=== PATIENT | male | born 1955 | race Caucasian/White ===

== ENCOUNTER 2019-12-29 09:51 | Outpatient (CLI) | payer OTHER, SELFPAY ==
--- NOTE | 2019-12-29 10:15 | USCV_ITS ---
Jay Pham Age: 64 Gender: M : 1955 Exam Date: 12/29/2019 10:13 Ordering Phys: Ledy Martinez Technologist: Ede Gregg Exam Location: [facility] [place] Indication: CHF BP: 137 / 75 HR: 57 Rhythm: Sinus Technical Quality: Good MEASUREMENTS (Male / Female) Normal Values 2D ECHO LV Diastolic Diameter PLAX 6.7 cm 4.2 - 5.9 / 3.9 - 5.3 cm LV Systolic Diameter PLAX 4.7 cm IVS Diastolic Thickness 1.0 cm 0.6 - 1.0 / 0.6 - 0.9 cm IVS Systolic Thickness 1.2 cm LVPW Diastolic Thickness 0.8 cm 0.6 - 1.0 / 0.6 - 0.9 cm LVPW Systolic Thickness 1.5 cm LVOT Diameter 2.1 cm LV Ejection Fraction 2D Teich 55.2 % LV Ejection Fraction MOD 2C 49.3 % LV Ejection Fraction 2C AL 48.4 % LA Diameter 3.6 cm LA Width 4.7 cm LA Height 5.4 cm RA Width 4.2 cm RA Height 5.2 cm M-MODE LV Diastolic Diameter MM 6.4 cm 4.2 - 5.9 / 3.9 - 5.3 cm LV Systolic Diameter MM 4.6 cm LV Ejection Fraction MM Teich 53.9 % IVS Diastolic Thickness MM 1.0 cm 0.6 - 1.0 / 0.6 - 0.9 cm IVS Systolic Thickness MM 1.6 cm LVPW Diastolic Thickness MM 1.1 cm 0.6 - 1.0 / 0.6 - 0.9 cm LVPW Systolic Thickness MM 1.6 cm RV Diastolic Diameter MM 1.1 cm Aortic Annulus Diameter 4.0 cm LA Ao Ratio MM 0.9 MV E Point Septal Separation 1.2 cm DOPPLER AV Peak Velocity 119.0 cm/s LVOT Peak Velocity 91.0 cm/s AV Area Cont Eq vti 2.1 cm squared AV Area Cont Eq pk 2.6 cm squared MV Area PHT 5.0 cm squared Mitral E to A Ratio 1.7 MV E' Velocity 10.0 cm/s Mitral E to MV E' Ratio 10.1 Mitral E to LV E' Lateral Ratio 8.4 Mitral E to LV E' Septal Ratio 12.9 TR Peak Velocity 209.0 cm/s TR Peak Gradient 17.5 mmHg TV Peak E Velocity 84.0 cm/s Right Atrial Pressure 3.0 mmHg Pulmonary Artery Systolic Pressu 20.5 mmHg PV Peak Velocity 90.0 cm/s FINDINGS Left Ventricle Mild diffuse hypokinesia left ventricle with ejection fraction of 49%. Right Ventricle The right ventricle is normal in size and function. Right Atrium The right atrium is normal in size. Left Atrium Mildly increased left atrial size. Mitral Valve Thickened mitral valve with mild mitral valve regurgitation. Aortic Valve Thickened aortic valve. Tricuspid Valve Mild tricuspid valve regurgitation. Pulmonic Valve Mild pulmonary valve regurgitation. Pericardium Normal pericardium without effusion. Aorta Plaque seen in the ascending aorta. CONCLUSIONS Mild diffuse hypokinesia left ventricle with ejection fraction of 49%. Mildly increased left atrial size. Thickened mitral valve with mild mitral valve regurgitation. Mild tricuspid valve regurgitation. Mild pulmonary valve regurgitation. Estimated pulmonary artery peak systolic pressure of 20 mmHg There is no pericardial effusion. There are no intracardiac masses. No previous study is available for comparison. Dr Lindsey Keys MD FACC (Electronically Signed) Final Date: 30 December 2019 19:50 S
== END 2019-12-29 09:52 | disposition home or self-care (01) ==
LOC: US 09:58
PROVIDERS: Family Provider Emergency Medicine Emergency Medical Services; PCP Emergency Medicine Emergency Medical Services; Visit Provider Nurse Practitioner Family
DX: I50.20 Unspecified systolic (congestive) heart failure (principal); I08.1 Rheumatic disorders of both mitral and tricuspid valves
CPT/HCPCS: 93306

== ENCOUNTER 2020-08-27 09:22 | Outpatient (CLI) | payer OTHER, SELFPAY ==
[2020-08-27 09:51] LABS: D Dimer 0.38 ug/mIFEU (0-0.59)
[2020-08-27 09:56] LABS: Alanine Aminotransferase 47 U/L (0-41); Albumin Level 3.5 g/dL (3.5-5.2); Alkaline Phosphatase 120 IU/L (40-130); Anion Gap 14.8 (5-19); Aspartate Amino Transferase 27 U/L (0-40); Blood Urea Nitrogen 7 mg/dL (8-23); C Reactive Protein 46.2 mg/L (0.0-4.9); Calcium 8.3 mg/dL (8.5-10.5); Carbon Dioxide 23 mmol/L (22-29); Chloride 97 mmol/L (98-107); Globulin 2.7 g/dL (1.3-4.6); Glomerular Filtration Rate 135.2 mL/min (90-130); Glucose 119 mg/dL (65-115); Lactate Dehydrogenase 203 U/L (135-225); Osmolality Calculated 271 mOsm/kg (285-295); Potassium 3.8 mmol/L (3.5-5.1); Sodium 131 mmol/L (136-145); Total Bilirubin 0.9 mg/dL (0.15-1.2); Total Protein 6.2 g/dL (6.6-8.7)
[2020-08-27 10:08] LABS: Hepatitis A Antibody IgM Non-Reactive (Nonreactive); Hepatitis B Surface Antigen Non-Reactive (Nonreactive); Hepatitis C Virus Antibody Non-Reactive (Nonreactive)
== END 2020-08-27 09:23 | disposition home or self-care (01) ==
LOC: LAB 09:23
PROVIDERS: Family Provider Emergency Medicine Emergency Medical Services; PCP Emergency Medicine Emergency Medical Services; Visit Provider Emergency Medicine Emergency Medical Services
DX: B15.9 Hepatitis A without hepatic coma (principal); U07.1 COVID-19
CPT/HCPCS: 80053; 83615; 85378; 86140; 86706; 86709; 86803; 87340

== ENCOUNTER 2020-10-14 08:43 | Outpatient (CLI) | payer OTHER, MEDICARE, SELFPAY ==
--- NOTE | 2020-10-14 08:52 | USCV_ITS ---
Jay Pham Age: 65 Gender: M : 1955 Exam Date: 10/14/2020 08:43 Ordering Phys: Kyle Bill DO Technologist: Chelsie Bliss Exam Location: [facility] [place] Indication: screening HISTORY: Diameter (cm) AP x Transverse x Length Velocity (cm/s) Waveform Prox Aorta: 2.15 x 2.33 x 55.40 Mid Aorta: 1.97 x 2.51 x 52.90 Distal Aorta: 1.98 x 2.51 x 68.60 Right Iliac Prox: 0.99 x 2.02 x 88.40 Left Iliac Prox: 1.05 x 0.99 x 140.00 Stent Prox Landing x x Aneurysmal Sac Max x x Lt Lat Sac Dim Rt Lat Sac Dim Stent Dist Landing x x Right Iliac Stent x x Left Iliac Stent x x Right Renal Art Left Renal Art FINDINGS: CONCLUSIONS No evidence of abdominal aortic or bilateral iliac aneurysm. London Flynn MD (Electronically Signed) Final Date: 14 October 2020 09:24 S
== END 2020-10-14 08:44 | disposition home or self-care (01) ==
LOC: RAD 08:44
PROVIDERS: PCP Emergency Medicine Emergency Medical Services; Visit Provider Emergency Medicine Emergency Medical Services
DX: I71.4 Abdominal aortic aneurysm, without rupture (principal)
CPT/HCPCS: 76706

== ENCOUNTER → 2020-11-13 08:39 | Outpatient (BNVA) | payer OTHER, SELFPAY | PROVIDERS: PCP Emergency Medicine Emergency Medical Services; Referring Provider Emergency Medicine Emergency Medical Services; Visit Provider Urology | DX: N52.9 Male erectile dysfunction, unspecified (principal) | CPT/HCPCS: 81003 ==

== ENCOUNTER 2021-01-01 06:35 | Outpatient (CLI) | payer OTHER, SELFPAY ==
--- NOTE | 2021-01-01 07:15 | USCV_ITS ---
Jay Pham Age: 65 Gender: M : 1955 Exam Date: 01/01/2021 07:58 Ordering Phys: Kin Plascencia MD ([email or web address]) Technologist: My [place] Exam Location: [facility] [place] Indication: SOB CHF BP: / HR: 58 Rhythm: Sinus Technical Quality: Adequate MEASUREMENTS (Male / Female) Normal Values 2D ECHO LV Diastolic Diameter PLAX 4.9 cm 4.2 - 5.9 / 3.9 - 5.3 cm LV Systolic Diameter PLAX 3.4 cm LV Chamber Size 5.0 cm IVS Diastolic Thickness 1.7 cm 0.6 - 1.0 / 0.6 - 0.9 cm IVS Systolic Thickness 1.8 cm LVPW Diastolic Thickness 1.4 cm 0.6 - 1.0 / 0.6 - 0.9 cm LVPW Systolic Thickness 2.0 cm RV Chamber Size 2.5 cm LVOT Diameter 2.0 cm LV Ejection Fraction 2D Teich 58.7 % LV Ejection Fraction MOD 2C 44.0 % LV Ejection Fraction 2C AL 46.9 % LA Diameter 3.6 cm LA Width 3.2 cm LA Height 4.7 cm RA Width 3.6 cm RA Height 3.9 cm Aorta at Sinotubular Diameter 3.2 cm M-MODE LV Diastolic Diameter MM 5.8 cm 4.2 - 5.9 / 3.9 - 5.3 cm LV Systolic Diameter MM 4.3 cm LV Ejection Fraction MM Teich 49.5 % IVS Diastolic Thickness MM 1.1 cm 0.6 - 1.0 / 0.6 - 0.9 cm IVS Systolic Thickness MM 1.9 cm LVPW Diastolic Thickness MM 1.4 cm 0.6 - 1.0 / 0.6 - 0.9 cm LVPW Systolic Thickness MM 1.8 cm RV Diastolic Diameter MM 1.4 cm Aortic Annulus Diameter 4.4 cm LA Ao Ratio MM 0.8 MV E Point Septal Separation 0.9 cm DOPPLER AV Peak Velocity 111.0 cm/s LVOT Peak Velocity 76.0 cm/s AV Area Cont Eq vti 2.2 cm squared AV Area Cont Eq pk 2.2 cm squared MV Area PHT 2.3 cm squared Mitral E to A Ratio 1.0 MV E' Velocity 40.0 cm/s Mitral E to MV E' Ratio 12.3 Mitral E to LV E' Lateral Ratio 12.7 Mitral E to LV E' Septal Ratio 12.1 TR Peak Velocity 191.9 cm/s TR Peak Gradient 14.7 mmHg TR Mean Velocity 143.8 cm/s TR Mean Gradient 9.5 mmHg TR Velocity Time Integral 51.7 cm TV Peak E Velocity 90.0 cm/s Right Atrial Pressure 3.0 mmHg Pulmonary Artery Systolic Pressu 17.7 mmHg PV Peak Velocity 52.0 cm/s FINDINGS Left Ventricle Normal left ventricular cavity size. Moderately decreased left ventricular systolic function. Global left ventricular hypokinesis. Left ventricular ejection fraction is estimated at 45 %. Grade I/IV diastolic dysfunction (abnormal relaxation filling pattern), normal to mildly elevated filling pressures. Right Ventricle The right ventricle is normal in size and function. Right Atrium The right atrium is normal in size. Left Atrium The left atrium is normal in size. Mitral Valve Moderately thickened mitral valve. No mitral valve stenosis. Trace mitral valve regurgitation. Aortic Valve Moderate aortic valve calcification. No aortic valve stenosis. Mild aortic valve regurgitation. Tricuspid Valve Structurally normal tricuspid valve without significant stenosis or regurgitation. Pulmonary artery systolic pressure is normal. Pulmonic Valve Structurally normal pulmonic valve without significant stenosis. There is no pulmonic regurgitation. Pericardium Normal pericardium without effusion. Aorta Normal ascending aorta dimension. CONCLUSIONS 1-Normal left ventricular cavity size. Moderately decreased left ventricular systolic function. Global left ventricular hypokinesis. Left ventricular ejection fraction is estimated at 45 %. Grade I/IV diastolic dysfunction (abnormal relaxation filling pattern), normal to mildly elevated filling pressures. 2-Moderate aortic valve calcification. No aortic valve stenosis. Mild aortic valve regurgitation. 3-Moderately thickened mitral valve. No mitral valve stenosis. Trace mitral valve regurgitation. 4-There is no pericardial effusion. 5-Pulmonary artery systolic pressure is within normal limits. 6-Right atrial pressure is around 5 mm of mercury. 7-No significant change since the prior echocardiogram study of 12/30/2019. Kin Plascencia MD (Electronically Signed) Final Date: 02 January 2021 17:24 S
== END 2021-01-01 06:36 | disposition home or self-care (01) ==
LOC: US 06:35
PROVIDERS: PCP Emergency Medicine Emergency Medical Services; Visit Provider Internal Medicine Cardiovascular Disease
DX: I50.23 Acute on chronic systolic (congestive) heart failure (principal); R06.02 Shortness of breath; I08.0 Rheumatic disorders of both mitral and aortic valves
CPT/HCPCS: 93306

== ENCOUNTER → 2021-01-02 16:45 | Outpatient (BNVA) | payer OTHER, SELFPAY | PROVIDERS: PCP Emergency Medicine Emergency Medical Services; Visit Provider Internal Medicine Cardiovascular Disease | DX: I25.10 Atherosclerotic heart disease of native coronary artery without angina pectoris (principal); Z20.828 Contact with and (suspected) exposure to other viral communicable diseases; I50.23 Acute on chronic systolic (congestive) heart failure | CPT/HCPCS: 87635 ==

== ENCOUNTER → 2021-01-03 08:32 | Outpatient (BNVA) | payer OTHER, SELFPAY | PROVIDERS: PCP Emergency Medicine Emergency Medical Services; Visit Provider Internal Medicine Cardiovascular Disease | DX: I50.23 Acute on chronic systolic (congestive) heart failure (principal); Z95.0 Presence of cardiac pacemaker; I25.10 Atherosclerotic heart disease of native coronary artery without angina pectoris | CPT/HCPCS: 80048; 85025 ==

== ENCOUNTER 2021-01-06 11:03 | Inpatient (IN) | payer OTHER, MEDICARE, SELFPAY ==
[2021-01-06] VITALS (54 sets, daily range): BP systolic 84–169; BP diastolic 55–120; PULSE 56–121; RESP 12–21; TEMP 36.4–36.7; O2SAT 92–100; BMI 28.5
--- NOTE | 2021-01-06 | XACV_ITS ---
Ht: 173 cm Wt: 85 kg BSA: 2.04 m2 Gender: Male : 1955 Any Known Allergies: No known allergies Exam Priority: Routine Diagnostic Findings * LM has 0% stenosis. * CX has 0% stenosis. * RCA has 0% stenosis. * Proximal Left Anterior Descending Coronary Artery: Severe 100% stenosis, SRUTHI: 0 flow. * Coronary angiography shows right dominance. PCI Indication: STEMI - Immediate PCI for STEMI Interventional Findings * Proximal Left Anterior Descending Coronary Artery: 100% stenosis treated with Drug Eluting Stent. 0% residual stenosis, SRUTHI: 3 flow. * Successful PCI to ostial LAD. Lesion was prepared with AB TREK balloon, followed by deployment of SALLY INTEGRITY 2.75 x 12 mm stent posted at high LORETTA . Stent was then post-dilated with serial dilatation of NC 3.0 x 8 mm at high LOR[place] in its entire length to ensure proper approximation. Excellent angiographic result with SRUTHI-3 flow was achieved. . Conclusions 1. There is severe coronary artery disease with one vessel disease. 2. Proximal Left Anterior Descending Coronary Artery was treated with Drug Eluting Stent. 3. Indication for General Agent: ST elevation MS. 65-year-old male for unstable angina like picture underwent left heart cath noted to have mid LAD moderate to severe in-stent restenosis. FFR was performed it turns out to be below 0.77 and significant. Balloon angioplasty using a noncompliant balloon was performed. Good angiographic result was achieved. Patient was transferred back to the room in a stable condition however he started noticing chest pain immediately EKG was performed which showed ST elevation in anterolateral leads. Patient was brought back to the General Agent immediately access was taken and angiogram was performed. Patient was noted to have ostial LAD dissection most likely secondary to possible guide related. It was immediately treated with balloon angioplasty followed by drug-coated stent placement which was overlapped with previously placed mid LAD stent. Proximal LAD stent was then postdilated with noncompliant balloon. Excellent angiographic result with SRUTHI-3 flow was achieved.. Recommendations * Continue current medical management and risk factor modification. Diagnostic RX Recommendation: PCI w/o planned CABG I, the attending physician, have reviewed and verified all procedure medications. Yes, all medications given per verbal order History/Risk Factors Hypertension: Yes Dyslipidemia: Yes Peripheral Arterial Disease (PAD): No Myocardial Infarction (MS): Yes Obesity: No Renal Disease: No Tobacco Use: Former Prior Interventions PCI: Yes CABG: No Valve Surgery: No Report Signatures Finalized by Kin Plascencia MD on 01/13/2021 07:30 PM
--- NOTE | 2021-01-06 07:21 | XACV_ITS ---
Exam Room: [facility] Ht: 173 cm Wt: 85 kg BSA: 2.04 m2 Gender: Male : 1955 Any Known Allergies: No known allergies Exam Priority: Routine Procedure(s): Procedure Description: Diagnostic procedure Procedure Description: PCI procedure Procedure Description: PTCA Procedure Description: Coronary Angiography Diagnostic Cath Status: Elective Diagnostic Findings * LM has 0% stenosis. * CX has 0% stenosis. * Mid Left Anterior Descending Coronary Artery: Moderate 70% stenosis, SRUTHI: 3 flow, FFR performed: ratio is 0.77. * pRCA: Mild 40% stenosis, SRUTHI: 3 flow. * Coronary angiography shows right dominance. PCI Status: Urgent PCI Indication: New Onset Angina <= 2 months Interventional Findings * Successful balloon angioplasty to mid LAD INSTENT RESTENOSIS. Lesion was treated with 2.75 x 12 mm MDT EUPHORA balloon, 70% lesion was improved to 20%, excellent angiographic result with SRUTHI-3 flow was achieved.. * Mid Left Anterior Descending Coronary Artery: 70% stenosis treated with MDT NC EUPHORA RX [id number] BALLOON and AB MINI TREK 2.00X20 RX BALLOON. 20% residual stenosis, SRUTHI: 3 flow. Successful intervention. Conclusions 1. Indication for cholangiogram: Worsening of angina despite of optimization of medicine1 Left main is normal2-LAD has luminal irregularity with mid 70 % in-stent restenosis3-LCx is nondominant vessel without significant stenosis4-RCA is dominant vessel with proximal 40% stenosisFFR: After equalizing the distal and proximal pressure of FFR wire proximal to the lesion, mid LAD lesion was crossed with FFR wire. IV adenosine at rate of 140 mcg/min was started. Patient did not compliant of any symptoms, at then end of two minutes FFR was recorded as 0.77, which is not significant . 2. There is moderate coronary artery disease with two vessel disease. 3. Mid Left Anterior Descending Coronary Artery was successfully treated with two Balloon. Recommendations * 1-Return to inpatient for close monitoring and routine cath care 2-Risk factor modification for secondary prevention 3-Statin and aspirin 81 mg life--long, if tolerated 4-Patient was pre-loaded with 600 mg of Plavix, continue Plavix 75mg p.o. daily for at least one year. We will assess at the end of one year again to continue if further or not 5-Continue optimal medical management 6-Follow up with Dr. Plascencia in four weeks and your primary care in 10 days. Diagnostic RX Recommendation: PCI w/o planned CABG Pressures Phase:Rest AO : 143 / 83 ( 108 ) @ 3:04:00 AM 181 / 32 ( 74 ) @ 3:06:00 AM 128 / 73 ( 96 ) @ 3:06:00 AM 157 / 75 ( 107 ) @ 3:10:00 AM 144 / 70 ( 100 ) @ 3:12:00 AM 136 / 66 ( 93 ) @ 3:30:00 AM 169 / 62 ( 101 ) @ 4:25:00 AM 156 / 112 ( 125 ) @ 4:30:00 AM 50 / -37 ( -3 ) @ 4:45:00 AM 177 / 112 ( 142 ) @ 4:45:00 AM Clinical Evaluation EBL: 5mL-10mL Procedural Details Procedure Consent Obtained. Current Diagnosis : Chest Pain. Pre-Procedure Time Out. Identified patient by full name and date of as verbalized by the patient/guarantor. Does the consent match the physician's order: Yes. Accurate & Complete Informed Consent: Yes. Inpatient/Outpatient History & Physical on Chart: Yes. If H&P is completed, is and addenduem needed: No; If yes, is the addendum complete: N/A. Visualize and Verify Site with Patient/Guarantor: N/A. Relevant Radiology Images available: Yes. Pre-op teaching completed and patient verbalized understanding. The risks, benefits, and alternatives of sedation and/or procedure were discussed by physician. The patient agrees to continue. Procedure started. [facility] Clinical Fraility Score: 3: Managing Well. Senior Database Programmer Indications: Worsening Angina. Chest Pain Symptom Assessment: Typical Angina Symptoms. Correct patient, site and procedure confirmed by cath team. Current diagnosis: Chest Pain. PERRLA. Strong, equal hand form worker bilaterally. Lungs clear x 5 lobes. IV Site on Arrival: 20 gauge in the left hand. IV Fluids: 0.9% NaCl at KVO. 0 mL infused prior to labor relations specialist. Pre Procedural Pulses: bilateral dorsalis pedis was 3+. Pre Procedural Pulses: bilateral posterior tibial was 2+. Pre Procedural Pulses: bilateral radial was 3+. Oxygen started at 2liters/min via nasal canula. bilateral groins was prepped with chloroprep then draped in the usual sterile fashion. Physician notified. Baseline sample Acquired. HR: 65 BPM. Physician arrived. Immediate Pre-Procedure Time Out. Correct Patient: Yes; Correct Procedure: Yes; Correct Site: Yes; Correct Patient Position: Yes; Correct Supplies: Yes; Dried Flammable Prep: Yes; Blood Products Available: N/A;. Lidocaine 1% infiltrated to the right groin. Arterial access obtained with micropuncture set. Lidocaine 1% infiltrated to the right groin. A 5 nicaraguan JL4 catheter in over wire. Catheter removed over the standard wire. A 5 nicaraguan AL1 catheter in over wire. Multiple views taken of right coronary artery. Catheter removed over the exchange wire. 6 nicaraguan XB 3.5 guide catheter was inserted over the wire. Multiple views taken of left coronary artery. FFR guidewire was advanced through the guide catheter to lesion in the mid LAD. An FFR value of 0.77 was obtained for a lesion located at Mid LAD. Inflation number : 1 A MDT NC EUPHORA RX 2.37P44RK BALLOON was prepped and advanced across the Mid LAD , then inflated to 12 LORETTA for 0:28 seconds. Inflation number: 2 The MDT NC EUPHORA RX 2.86R55AB BALLOON was reinflated across the Mid LAD, to 16 LORETTA for 0:24 seconds. Inflation number: 3 The MDT NC EUPHORA RX 2.36K02QE BALLOON was reinflated across the Mid LAD, to 18 LORETTA for 0:40 seconds. Inflation number: 4 The MDT NC EUPHORA RX 2.26Y64VA BALLOON was reinflated across the Mid LAD, to 18 LORETTA for 0:30 seconds. Results checked. Balloon and wire out. Guide catheter out. A Right femoral angiogram was performed to determine safe placement of closure device. Perclose Lot# [id number] placed without complications. No signs or symptoms of hematoma noted. Sterile dressing applied per usual sterile fashion. Post Procedure: Pulses reassessed and unchanged. PERRLA. Strong, equal hand form worker bilaterally. No VTE prophylaxis required. Medication's Wasted: Lidocaine 1% = 10 mL. Medication's Wasted: Heparin = 2000 units. Medication's Wasted: Other = Adenosine 52.6 mg. Total IV fluids: 200 mL. Contrast type used: Omnipaque 300 mgI/mL, 500 mL bottle. Post-op diagnosis: CAD. Complications: None. Estimated blood loss: 5mL-10mL. Procedure completed. Vital chart was stopped. A Perclose ([email or web address]) was successful obtaining hemostatsis at the Right Femoral artery insertion site. Patient transferred by bed to 1st floor. Pt arrived from [facility] with STEMI. Procedure started. O2 started at 5 lpm. Jillian Martinez RT(R) was relieved by Sandi Gibbs RRT as monitoring person. Physician scrubbed in. Arterial access obtained with micropuncture set. Anesthesiologist present to manage sedation and airway. ACT drawn. Results 185 seconds. Therapeutic limits - pre-heparin administration 90-150 seconds and monitoring heparin during a vascular procedure >250 seconds. Inventory is CRD 6 FR XB 3.5 GUIDE. 6 nicaraguan XB 3.5 guide catheter was inserted over the wire. AP pads applied to patient. Anesthesia placed patient on NRB. Runthrough guidewire was advanced through the guide catheter to lesion in the prox LAD. Inflation number : 5 A AB MINI TREK 2.00X20 RX BALLOON was prepped and advanced across the Mid LAD , then inflated to 18 LORETTA for 0:07 seconds. Inflation number: 6 The AB MINI TREK 2.00X20 RX BALLOON was reinflated across the Mid LAD, to 20 LORETTA for 0:12 seconds. Anesthesia preparing to intubate patient. Results checked. Anesthesia intubating patient at this time. Pt was intibated by anesthesiawith a 7.5Fr endotrachial tube. Breath sounds equal bilaterally. Tube was taped into position at 24cm. Inflation number: 7 The AB MINI TREK 2.00X20 RX BALLOON was reinflated across the Mid LAD, to 24 LORETTA for 0:13 seconds. Balloon out. Inflation number : 1 A AB TREK 2.50X8 RX BALLOON was prepped and advanced across the Prox LAD , then inflated to 16 LORETTA for 0:09 seconds. Inflation number: 2 The AB TREK 2.50X8 RX BALLOON was reinflated across the Prox LAD, to 18 LORETTA for 0:06 seconds. Balloon out. 100 mcg fentanyl given by anesthesia. Results checked. Inflation Number : 3 A MDT R SALLY 2.75X15 MARLENE -Lot Number# [id number] exp date 09/22/2022 was prepped and advanced across the Prox LAD. The stent was deployed at 20 LORETTA for 0:20 seconds. Stent balloon and wire out. Inflation number : 4 A MDT NC EUPHORA RX 3.11P46SL BALLOON was prepped and advanced across the Prox LAD , then inflated to 20 LORETTA for 0:13 seconds. A 20 gauge IV was started in the right wrist using aseptic technique. Inflation number: 5 The MDT NC EUPHORA RX 3.13L27MH BALLOON was reinflated across the Prox LAD, to 22 LORETTA for 0:13 seconds. Inflation number: 6 The MDT NC EUPHORA RX 3.33H29ZW BALLOON was reinflated across the Prox LAD, to 22 LORETTA for 0:06 seconds. Checking results. Balloon and wire out. Guide catheter out. Physician scrubbed out. A Suture was successful obtaining hemostatsis at the Right Femoral artery insertion site. Sheath(s) sutured into position with 2-0 silk and sterile 4x4's and Op-site applied over the site. No oozing or signs and symptoms of hematoma noted. Arterial sheath flushed and connected to tranducer and pressure bag with heparinized saline. Post Procedure: Pulses reassessed and unchanged. PERRLA. Strong, equal hand form worker bilaterally. No VTE prophylaxis required. PCI Indication: STEMI. Complications: none. Estimated blood loss: 5mL-10mL. Procedure completed. Patient transferred by bed to ICU. Access Site Site: Right Femoral artery Sheath Size: 6 Fr Hemostasis Method: Perclose ([email or web address]) Hemostasis Success: Successful Site: Right Femoral artery Sheath Size: 6 Fr Hemostasis Method: Suture Hemostasis Success: Successful Procedure Medications Start: 8:47 AM Stop: 8:47 AM Medication: Versed Amount: 1 mg Route: I.V. Start: 8:47 AM Stop: 8:47 AM Medication: Fentanyl Amount: 50 mcg Route: I.V. Start: 8:52 AM Stop: 8:52 AM Medication: Versed Amount: 1 mg Route: I.V. Start: 8:54 AM Stop: 8:54 AM Medication: Fentanyl Amount: 50 mcg Route: I.V. Start: 9:09 AM Stop: 9:09 AM Medication: Heparin Amount: 5000 units Route: I.V. Start: 9:27 AM Stop: 9:27 AM Medication: Heparin Amount: 4000 units Route: I.V. Start: 9:35 AM Stop: 9:35 AM Medication: Versed Amount: 2 mg Route: I.V. Start: 9:53 AM Stop: 9:53 AM Medication: Fentanyl Amount: 50 mcg Route: I.V. Start: 9:53 AM Stop: 9:53 AM Medication: Fentanyl Amount: 50 mcg Route: I.V. Start: 9:54 AM Stop: 9:54 AM Medication: Versed Amount: 2 mg Route: I.V. Start: 10:17 AM Stop: 10:17 AM Medication: Zofran (ondansetron) Amount: 4 mg Route: I.V. Start: 10:18 AM Stop: 10:18 AM Medication: Morphine Amount: 4 mg Route: I.V. Start: 10: AM Stop: 10:21 AM Medication: Versed Amount: 2 mg Route: I.V. Start: 10:30 AM Stop: 10:30 AM Medication: Heparin Amount: 5000 units Route: I.V. Start: 10:33 AM Stop: 10:33 AM Medication: Aggrastat 12.5 mg/250 mL Amount: 43 ml Route: I.V. bolus Start: 10:36 AM Stop: 10:36 AM Medication: Aggrastat 12.5 mg/250 mL Amount: 15.5 ml/hr Route: I.VRebecca luevano I, the attending physician, have reviewed and verified all procedure medications. Yes, all medications given per verbal order History/Risk Factors Hypertension: Yes Dyslipidemia: Yes Peripheral Arterial Disease (PAD): No Myocardial Infarction (SC): Yes Obesity: No Renal Disease: No Tobacco Use: Former Prior Interventions PCI: Yes CABG: No Valve Surgery: No Report Signatures Finalized by Kin Plascencia MD on 01/13/2021 07:18 PM
[2021-01-06] MEDS: diphenhydrAMINE 50 mg Capsule PO (08:21)
--- NOTE | 2021-01-06 08:38 | P.HP_ITS ---
Same Day Surgery H&P Indication for Procedure/HPI DATE OF PROCEDURE: January 06, 2021 CHIEF COMPLAINT/INDICATIONFOR SURGICAL PROCEDURE: Chest pain, worsening of heart failure, LV dysfunction PREOP DIAGNOSIS: Angina, worsening of heart failure, LV dysfunction PLANNED PROCEDRUE: Operation Date: 01/06/21 08:30 Proposed Procedures p left Cardiac Catheterization 79155 I50.9(Left) - Kin Plascencia MD 65-year-old male past medical history significant for hypertension hyperlipidemia history of myocardial infarction's history of drug-eluting stent to RCA in September 2019 history of moderate to severely depressed ejection fraction for worsening of chest pain along with shortness of breath and LV dysfunction he is here for left heart cath proposed on prior visits despite of optimization of medicine. I have personally explained all risk benefit and alternative for the procedure Medications/Allergies* Home Medications Medication Instructions Recorded Confirmed Type amiodarone 200 mg tablet 200 mg PO DAILY 12/06/19 01/06/21 History aspirin 81 mg chewable tablet 81 mg PO DAILY 12/06/19 01/06/21 History atorvastatin 80 mg tablet 80 mg PO DAILY 12/06/19 01/06/21 History carvedilol 25 mg tablet See Rx Instructions PO BID 12/06/19 01/06/21 History isosorbide mononitrate 30 mg 30 mg PO DAILY 12/06/19 01/06/21 History tablet,extended release 24 hr lisinopril 40 mg tablet 40 mg PO DAILY 12/06/19 01/06/21 History multivitamin 1 tab PO DAILY 12/06/19 01/06/21 History nitroglycerin 0.4 mg sublingual 0.4 mg SUBLINGUAL Q5M PRN 12/06/19 01/06/21 History tablet omega-3 fatty acids 1,000 mg 1,000 mg PO DAILY 12/06/19 01/06/21 History capsule ticagrelor 90 mg tablet 90 mg PO BID 12/06/19 01/06/21 History allopurinol 300 mg tablet 300 mg PO DAILY tab 12/03/20 01/06/21 History magnesium oxide,aspartate,citr 400 mg PO DAILY cap 12/03/20 01/06/21 History Allergies/Adverse Reactions Allergy/AdvReac Type Severity Reaction Status Date / Time No Known Allergies Allergy Verified 12/25/20 10:13 Current Medications: Generic Name Dose Route Start Last Admin Trade Name Freq PRN Reason Stop Dose Admin Sodium Chloride 1,000 mls @ 50 mls/hr 01/06/21 07:23 01/06/21 08:21 Sodium Chloride 0.9% IV 01/07/21 03:22 Not Given .Q20H ONE Pertinent History/Comorbid Conditions* Medical History (Updated 12/07/20 @ 21:14 by Kin Plascencia MD) Anxiety CAD (coronary artery disease) CHF (congestive heart failure) Erectile dysfunction HTN (hypertension) Hx of cardiac pacemaker Hyperlipidemia Myocardial infarct Surgical History (Updated 12/07/20 @ 21:14 by Kin Plascencia MD) H/O angioplasty History of cardiac defibrillator placement Hx of appendectomy Family History (Updated 12/19/19 @ 10:47 by Edith Pollard RN) Father, at age 66 Diabetes Mother CAD (coronary artery disease) Father Dementia Mother Hyperlipidemia Mother Brother Hypertension Mother Brother Denies family history of Clotting disorder Psychiatric illness Chronic kidney disease (CKD) Suicide Anesthesia complication Bleeding disorder Family history of premature coronary artery disease Lung disease Cancer Stroke Social History Smoking and tobacco status: former smoker Alcohol intake: current Alcohol intake frequency: holidays/special occasions only Marital status: Current occupational status: disabled History of recent travel: No Pertinent Exam Findings alert, oriented x 3, clear to auscultation bilaterally and regular rate & rhythm Recommendations Surgery/Procedure today Other Plans: Patient is here for left heart cath. We will proceed with left heart cath I have personally explained all risk benefit and alternative for the procedure patient understand that and would like to proceed with it. Further plan be advised as per progress of the patient. Coding Level of Care Code Established Pt Acute Sales Service Assistant for Chg Fwd Patient Type Established History Detailed Exam Detailed Medical Decision Making Moderate Complexity
--- NOTE | 2021-01-06 08:41 | W.PM.OPSUD ---
Surgery/Procedure H&P Update DATE OF PROCEDURE: January 06, 2021 DATE H&P PERFORMED: 12/25/20 H&P UPDATE INFORMATION: I have reviewed H&P completed within last 30 days and I have examined patient prior to procedure PREOP DIAGNOSIS: Angina, worsening of heart failure, LV dysfunction PLANNED PROCEDURE: Operation Date: 01/06/21 08:30 Proposed Procedures p left Cardiac Catheterization 86301 I50.9(Left) - Kin Plascencia MD PHYSICAL EXAM: alert, oriented x 3 and clear to auscultation bilaterally AIRWAY EVAL/ANESTHESIA PLAN: normal airway, ASA II, Risks, benefits & alternatives of sedation and/or procedure discussed and Patient agrees to continue as planned
--- NOTE | 2021-01-06 09:37 | PC.CHAP ---
Pastoral Care Encounter/Spiritual Assessment Type of Contact [] Declined calender let off helper visit [] Patient/Family/Request visit [] Outpatient visit [] Follow-up visit [] Physician referral [] Code/Alert [x] Routine visit [] Staff referral [] Actively dying [] Patient sleeping [] Family support [] [] Out of room [] Palliative care [] [] Receiving care in room [] Pre-surgical visit [] Trauma [] Long length of stay [] ICU visit [] Other: Relational/Emotional Strength [] Patient feels connected with others/family/visitors/staff [] Distress [] Loneliness/isolation [] Abandonment Spirituality of Patient [] Person of Ricarda [] Attends Zoroastrian of their Ricarda [] Believes in Prayer [] Reads Bible or Jehovah'S Witness materials [] There are Spiritual issues to be addressed Construction Manager Interventions [x] Prayer [] Active listening [] Non-anxious presence [] Spiritual/emotional support [] Crisis/trauma care [] Spiritual counseling [] Bereavement support [] Provided bereavement packet [] Provided Bible/devotional materials [] Provided toy/stuffed animal, coloring book to patient or family member [] Provided Communion [] Anointing/Orient [] Salvation [x] Completed spiritual assessment [] Other: Impact on Illness or Injury [] Angry [] Fearful [] Anxious [] Often cries [] Exhaustion [] Unable to work [] Unable to attend judaism [] Unable to walk/stand [] Unable to read [] Unable to drive [] Unable to eat/drink [] Unable to sleep [] Unable to be with family [] Patient intubated [] Other: Summary Time spent with patient
--- NOTE | 2021-01-06 10:09 | ECG_ITS ---
[facility] Test Date: 2021-01-06 Pat Name: Jay Pham Department: Room: 104 Gender: Male Maintenance Construction Helper: : 1955 Requested By: Kin Plascencia Order Number: [id number] Reading MD: KIN PLASCENCIA Measurements Intervals [place] Rate: 78 P: 84 CO: 225 QRS: 78 QRSD: 96 T: 76 QT: 377 QTc: [address] ELEVATION, CONSIDER ANTEROSEPTAL INJURY [MARKED ST ELEVATION W/O NORMALLY INFLECTED T WAVE IN V1-V4] ACUTE DC INTERPRETATION BASED ON A DEFAULT AGE OF 40 YEARS Compared to ECG 09/03/2019 06:18:58 ST (T wave) deviation now present Sinus bradycardia no longer present Ventricular premature complex(es) no longer present Myocardial infarct finding still present Electronically Signed On 01-06-2021 18:29:09 COTTON WRINGER by KIN PLASCENCIA [id number]
--- NOTE | 2021-01-06 11:30 | PC.NURSE ---
Right femoral sheath connected to pressure bag et pressure monitoring cable. Pressure monitor cable connected to bedside monitor. Leveled et zeroed. Adequate waveform present et all ABP monitoring parameters reviewed.
[2021-01-06] MEDS: propofol 1,000 MG/100 ML INJ 33.3 MG IV (11:33)
--- NOTE | 2021-01-06 11:50 | XRR_ITS ---
PROCEDURE INFORMATION: Exam: XR Chest Exam date and time: 01/06/2021 12:43 PM Age: 65 years old Clinical indication: Device placement; Ett placement (vent status); Additional info: Post intubation, og insertion TECHNIQUE: Imaging protocol: XR of the chest Views: 1 view. COMPARISON: CT Chest w IV contrast* [id number] 10/07/2016 4:47 AM FINDINGS: Tubes, catheters and devices: There is an endotracheal tube present with the tip 5.9 cm above the [place]. An enteric tube extends down into the stomach. Lungs: There is bilateral perihilar haziness, more prominent on the right, which can be due to asymmetric pulmonary edema. Pleural spaces: No pleural effusion or pneumothorax. Heart/Mediastinum: The cardiac silhouette is not enlarged. The mediastinal contours are normal. Bones/joints: No acute osseous abnormality. XR/XR chest 1V portable [id number] IMPRESSION: 1. Endotracheal tube tip 6 cm above the angeels. 2. Enteric tube extends to the stomach. 3. Suspect asymmetric pulmonary edema.
--- NOTE | 2021-01-06 11:50 | ECG_ITS ---
[facility] Test Date: 2021-01-06 Pat Name: Jay Pham Department: Room: ICU10 Gender: Male Certified Art Therapist: : 1955 Requested By: Kin Plascencia Order Number: [id number] Reading MD: KIN PLASCENCIA Measurements Intervals [place] Rate: 69 P: 48 TN: 209 QRS: 6 QRSD: 107 T: 18 QT: 460 QTc: 494 Interpretive Statements SINUS RHYTHM INFERIOR MYOCARDIAL INFARCTION [40+ ms Q WAVE AND/OR ST/T ABNORMALITY IN II/aVF], OF INDETERMINATE AGE Compared to ECG 01/06/2021 10:10:36 ST (T wave) deviation no longer present Myocardial infarct finding still present Electronically Signed On 01-06-2021 18:28:09 POLICY INTERN by KIN PLASCENCIA [id number]
--- NOTE | 2021-01-06 12:31 | ANES.PREANE2 ---
Pre-Anesthetic Assessment Pre-Anesthetic Assessment: Height/Weight: Height 1.73 m Weight 85.275 kg Temp Pulse Resp BP Pulse Ox 98.1 F 71 14 169/111 99 01/06/21 07:25 01/06/21 07:25 01/06/21 11:09 01/06/21 07:25 01/06/21 11:09 Preop Diagnosis: Angina, worsening of heart failure, LV dysfunction Proposed Procedure: Operation Date: 01/06/21 08:30 Proposed Procedures p left Cardiac Catheterization 70732 I50.9(Left) - Kin Plascencia MD Was Beta Imani taken within 24 hours: Yes Social: Social History: No alcohol and No tobacco Exam: Additional Exam Findings (including area of procedure): Called to sedate/intubate patient immediately in Sales Development Director Airway: Submandibular: WNL Cervical ROM: WNL MP: 3 Dentition: False CV/HEM: CV/HEM: CAD, CHF, HTN and [place] Comments: Pacemaker/AICD Anesthetic Plan: ASA status: 4E Anesthesia: General Risk of > 500 ml blood loss (7ml/kg in children): No Meds/Allergies Current Medications: Current Medications Generic Name Dose Route Start Last Admin Trade Name Freq PRN Reason Stop Dose Admin Sodium Chloride 1,000 mls @ 50 ml s/hr 01/06/21 07:23 01/06/21 08:21 Sodium Chloride 0.9% IV 01/07/21 03:22 Not Given .Q20H ONE Tirofiban/Sodium C hloride 12.5 mg in 250 ml s @ 15.5 mls/hr 01/06/21 11:15 01/06/21 12:19 Aggrastat IV 0.15 mcg/kg/min .Q16H8M JOSIAH 15.4 mls/hr Administration Protocol Norepinephrine Bit artrate 4 mg 254 mls @ 0 mls/h r 01/06/21 11:30 01/06/21 12:17 / Dextrose IV 5 mcg/min .Q0M JOSIAH 19.1 mls/hr Administration Protocol Per Protocol Propofol 1,000 mg in 100 m ls @ 0 mls/hr 01/06/21 11:30 01/06/21 11:33 Diprivan IV 65 mcg/kg/min .Q0M JOSIAH 33.3 mls/hr Administration Protocol Per Protocol PFSH Anesthesia PFSH: Medical History Anxiety CAD (coronary artery disease) CHF (congestive heart failure) Erectile dysfunction HTN (hypertension) Hx of cardiac pacemaker Hyperlipidemia Myocardial infarct Surgical History H/O angioplasty History of cardiac defibrillator placement Hx of appendectomy Family History Father , at age 66 CAD (coronary artery disease) Mother Diabetes Hypertension Dementia Hyperlipidemia Brother Hyperlipidemia Hypertension Denies family history of Clotting disorder Psychiatric illness Chronic kidney disease (CKD) Suicide Anesthesia complication Bleeding disorder Family history of premature coronary artery disease Lung disease Cancer Stroke Social History Smoking and tobacco status: former smoker Alcohol intake: current Alcohol intake frequency: holidays/special occasions only Marital status: Current occupational status: disabled History of recent travel: No Data Anesthesia Cardiac Studies: No Data to Display
--- NOTE | 2021-01-06 12:33 | ANE.PACU2 ---
Inpatient post-anesthesia follow up: Airway intact: Yes (ETT) Vital signs: Temperature 98.1 F Pulse Rate 71 Respiratory Rate 14 Blood Pressure 169/111 Pulse Oximetry 99 Oxygen Delivery Me thod Room Air Oxygen Flow Rate Fraction of Inspir ed Oxygen 60 Hydration adequate: No Nausea and vomiting: No Pain level: 3 Mental status: Altered Additional Comments: Intubated/ventilated to ICU, sedated.
[2021-01-06] MEDS: amiodarone 200 mg Tablet PO (12:45)
[2021-01-06] MEDS: allopurinol 300 mg Tablet PO (12:46)
[2021-01-06] MEDS: aspirin 81 mg Chew Tablet PO (12:46)
[2021-01-06] MEDS: multivitamin therapeutic Tablet 1 TAB PO (12:46)
[2021-01-06] MEDS: FUROsemide 40 mg Tablet PO (12:47)
[2021-01-06] MEDS: ticagrelor 90 mg Tablet 180 MG PO (12:47)
[2021-01-06] MEDS: magnesium oxide 400 mg tablet PO (12:48)
[2021-01-06] MEDS: omega-3 fatty acids 1,000 mg Capsule 1000 MG PO (12:58)
[2021-01-06] MEDS: carvedilol 25 mg Tablet PO (13:00)
[2021-01-06] MEDS: fentaNYL 50 mcg/mL INJ 2mL IVP ×3 (13:12→20:54)
[2021-01-06] MEDS: FUROsemide 10 mg/mL SDV 4mL 40 MG IVP (13:45)
[2021-01-06] MEDS: propofol 1,000 MG/100 ML INJ 25.6 MG IV ×3 (15:00→20:53)
[2021-01-06 15:57] LABS: ABG PCO2 28.8 mmHg (35-45); ABG PH Result 7.39 (7.35-7.45); Alveolar-Arterial Oxygen Gradi 16.3 mmHg (5-10); Arterial Blood Gas Hematocrit 33.5 % (42-52); Base Excess ABG -6.3 mmol/L (-2.0-2.0); Blood Gas Operator Identificat CAK; Blood Gas Sample Type Arterial; Carboxyhemoglobin 0.5 %THgb (0.4-20.1); HCO3 ABG 17.6 mmol/L (22-26); HGB O2 Sat 96.3 % (95-100); Methemoglobin 0.6 % (0.4-1.5); Oxygen Device VENT; Oxygen Saturation ABG 97.4; PO2 ABG 89.1 mmHg (80.0-100.0); Potassium Level - ABG 2.5 mmol/L (3.5-5.0); Total Hemoglobin 10.9 g/dL (14-18)
[2021-01-06 16:04] LABS: Troponin T (5th) Once 130 ng/L (0-15)
[2021-01-06] MEDS: ticagrelor 90 mg Tablet PO (17:30)
[2021-01-06 18:28] LABS: Partial Thromboplastin Time 31.3 SECONDS (23.9-36.7)
--- NOTE | 2021-01-06 18:42 | PM.PN ---
Subjective Subjective: Interval history: Patient underwent balloon angioplasty of mid LAD stent for abnormal and significant FFR 0.77. Good angiographic result was achieved however patient started having chest pain when transferred back to the room immediate EKG showed ST elevation in anterolateral leads he was brought back to the Environmental Compliance Manager he was intubated due to noncooperation by moving around secondary to chest pain and for hemodynamic stability and in order to protect airway. He was noted to have proximal LAD dissection most likely guide induced as it was also mentioned during prior caths that there is a difficulty engagement of the coronary arteries due to tortuosity of the aorta proximal LAD was then treated with balloon angioplasty followed by overlapping drug-eluting stent. Good angiographic result was achieved immediately flow was restored. Patient also developed pulmonary edema since he has history of severely depressed ejection fraction and during this phase of ischemia. He was transferred to ICU and given IV Lasix. He stable vital zee. Vitals/I&O/Wt Last Vital Signs Temp 97.7 F 01/06/21 12:00 Pulse 63 01/06/21 15:30 Resp 16 01/06/21 17:43 BP 102/70 01/06/21 15:30 Pulse Ox 96 01/06/21 17:43 01/06/21 01/06/21 01/06/21 06:59 14:59 22:59 Intake Total 150 / 150 118.694 / 268.694 Output Total 1650 / 1650 Balance 150 / 150 -1531.306 / -1381.306 Weight last 48 hrs Weight 188 lb Physical Exam Narrative: EXAM NARRATIVE: GENERAL: Patient is sedated on propofol minor laceration of lips and tongue during process of intubation NECK: No jugular vein distension. HEENT: No cyanosis. No icterus. No pallor. HEART: Regular S1 and S2. No murmur, rub or gallop. LUNGS: Bilateral crackles. ABDOMEN: Soft, nontender and nondistended. Positive bowel sounds. No guarding, rebound or tenderness. CENTRAL NERVOUS SYSTEM: Cannot assess due to sedation EXTREMITIES: Lower extremities without edema bilaterally, Patient has injury to the lips and A&P Assessment and plan (1) CAD (coronary artery disease): Status post percutaneous angioplasty for in-stent restenosis significant by FFR of 0.77 followed by PCI to proximal LAD for guiding this dissection. A good angiographic result with SRUTHI-3 flow was achieved. Patient remained intubated but stable vital zee. Patient was loaded with Brilinta. Continue aspirin statin. Status: Chronic Qualifiers: Coronary Disease-Associated Artery/Lesion type: [place] artery [place] vs. transplanted heart: [place] heart Associated angina: angina presence unspecified Qualified Code(s): I25.10 - Atherosclerotic heart disease of [place] coronary artery without angina pectoris (2) CHF (congestive heart failure): Appear to be in decompensated state of heart failure we will diurese with Lasix. Once euvolemic and stable will try to extubate Status: Acute Qualifiers: Heart failure type: systolic Heart failure chronicity: acute on chronic Qualified Code(s): I50.23 - Acute on chronic systolic (congestive) heart failure (3) HTN (hypertension): Well-controlled continue medicine. Status: Chronic Qualifiers: Hypertension type: essential hypertension Qualified Code(s): I10 - Essential (primary) hypertension Attestations Medical Necessity Statement*: Patient require continuation hospitalization for above defined care. I am expecting his stay to cross more than 2 midnights. Patient will be admitted Coding Level of Care Code Established Pt Acute Machine Welt Butter for Ronalg Sameer Patient Type Established History Comprehensive Exam Comprehensive Medical Decision Making High Complexity Diagnoses CAD (coronary artery disease) I25.10 Coronary Disease-Associated Artery/Lesion type: [place] artery [place] vs. transplanted heart: [place] heart Associated angina: angina presence unspecified CHF (congestive heart failure) I50.23 Heart failure type: systolic Heart failure chronicity: acute on chronic HTN (hypertension) I10 Hypertension type: essential hypertension
--- NOTE | 2021-01-06 22:13 | PC.NURSE ---
Sheath Removal Right femoral artery sheath removed at 2110. Firm pressure held for 30 minutes until hemostasis achieved. No hematoma present, mild bruising at puncture site. Dressing with sterile gauze and tegaderm. Right pedal pulses palpable and strong. Pt tolerated well. Right leg remains in soft limb restraint . Patient to lay flat for 5 hrs.
[2021-01-06] MEDS: carvedilol 12.5 mg Tablet PO (22:45)
[2021-01-06] MEDS: atorvastatin 40 mg Tablet 80 MG PO (22:45)
[2021-01-06 23:17] LABS: Glucose Point of Care 110 mg/dL (70-110)
[2021-01-07] VITALS (40 sets, daily range): BP systolic 84–137; BP diastolic 56–75; PULSE 63–79; RESP 12–20; TEMP 36.6–38.5; O2SAT 87–97
[2021-01-07] MEDS: propofol 1,000 MG/100 ML INJ 25.6 MG IV (00:13)
--- NOTE | 2021-01-07 03:00 | PC.NURSE ---
Extubated Sedation off. Pt awake and following all commands. Pt sat up in bed 5.5 hrs after sheath pull. RT at bedside and extubated patient to 4L NC, 02 saturation 93-94%. Pt tolerated well. Breathing even and non-labored. Alert and oriented X 4, speech is clear. C/o sore throat. Pt tolerating ice chips well.
[2021-01-07 03:55] LABS: Lymphocytes # 1.2 10^3/uL (0.8-4.8); Monocytes # 0.9 10^3/uL (0.2-0.9); Nucleated Red Blood Cells % 0 %
[2021-01-07 04:12] LABS: Anion Gap 15.8 (5-19); Blood Urea Nitrogen 16 mg/dL (8-23); Calcium 8.7 mg/dL (8.5-10.5); Carbon Dioxide 22 mmol/L (22-29); Chloride 105 mmol/L (98-107); Glomerular Filtration Rate 84.7 mL/min (90-130); Glucose 109 mg/dL (65-115); Osmolality Calculated 290 mOsm/kg (285-295); Potassium 3.8 mmol/L (3.5-5.1); Sodium 139 mmol/L (136-145)
[2021-01-07 04:13] LABS: Basophils % 0.6 %; Eosinophils # 0.2 10^3/uL (0.0-0.8); Eosinophils % 2.3 %; Hematocrit 40.1 % (42.0-52.0); Hemoglobin 12.9 g/dL (11.7-16.6); Lymphocytes % 17.6 %; Mean Corpuscular HGB Conc 32.2 g/dL (30.0-36.0); Mean Corpuscular Hemoglobin 30.4 pg (28.0-34.0); Mean Corpuscular Volume 94.4 fL (80-94); Mean Platelet Volume 10.4 fL (7.4-10.4); Monocytes % 13.3 %; Neutrophils # 4.67 10^3/uL (1.8-7.7); Neutrophils % 66.1 %; Platelet Count 141 10^3/cmm (130-400); Red Blood Count 4.25 10^6/uL (4.1-5.3); Red Cell Distribution Width 14.1 % (12.1-15.1); White Blood Count 7.1 10^3/uL (4.0-10.0)
[2021-01-07] MEDS: FUROsemide 10 mg/mL SDV 4mL 40 MG IVP (09:34)
[2021-01-07] MEDS: allopurinol 300 mg Tablet PO (09:34)
[2021-01-07] MEDS: potassium chloride ER 20 mEq Tablet PO (09:34)
[2021-01-07] MEDS: ticagrelor 90 mg Tablet PO ×2 (09:34→17:37)
[2021-01-07] MEDS: aspirin 81 mg Chew Tablet PO (09:34)
[2021-01-07] MEDS: amiodarone 200 mg Tablet PO (09:35)
[2021-01-07] MEDS: carvedilol 25 mg Tablet PO (09:36)
[2021-01-07] MEDS: multivitamin therapeutic Tablet 1 TAB PO (09:36)
[2021-01-07] MEDS: potassium chloride ER 20 mEq Tablet 40 MEQ PO (15:00)
--- NOTE | 2021-01-07 15:26 | P.PN_ITS ---
Subjective Subjective: Interval history: Extubated last night did pretty well denies any chest pain. Vitals/I&O/Wt Last Vital Signs Temp 98.6 F 01/07/21 12:00 Pulse 78 01/07/21 15:00 Resp 20 H 01/07/21 06:00 BP 101/73 01/07/21 15:00 Pulse Ox 91 01/07/21 15:00 01/07/21 01/07/21 01/07/21 06:59 14:59 22:59 Intake Total 871.036 / 7753.592 5679 / 1199 Output Total 450 / 2100 250 / 250 Balance 421.036 / -870.909 949 / 949 Weight last 48 hrs Weight 188 lb Physical Exam Narrative: EXAM NARRATIVE: GENERAL: Patient is alert, awake and oriented x3. NECK: No jugular vein distension. HEENT: No cyanosis. No icterus. No pallor. HEART: Regular S1 and S2. No murmur, rub or gallop. LUNGS: Clear to auscultate bilaterally. ABDOMEN: Soft, nontender and nondistended. Positive bowel sounds. No guarding, rebound or tenderness. CENTRAL NERVOUS SYSTEM: Grossly nonfocal. EXTREMITIES: Lower extremities without edema bilaterally. Const: COMMON NORMALS: alert Resp: COMMON NORMALS: clear to auscultation bilaterally AUSCULTATION: clear to auscultation bilaterally Neuro: SENSORIUM/ORIENTATION: Yes alert Data : 01/07/21 03:36 01/07/21 03:36 A&P Assessment and plan (1) CAD (coronary artery disease): Status post percutaneous angioplasty for in-stent restenosis significant by FFR of 0.77 followed by PCI to proximal LAD for guiding this dissection. A good angiographic result with SRUTHI-3 flow was achieved. Patient remained intubated but stable vital zee. Patient was loaded with Brilinta. Continue aspirin statin. On today's visit patient was doing fine from a cardiovascular perspective denies any complaint. He has been extubated last night. Continue aspirin statin and beta-daniel TAN inhibitor and ticagrelor Status: Chronic Qualifiers: Coronary Disease-Associated Artery/Lesion type: [place] artery [place] vs. transplanted heart: [place] heart Associated angina: angina presence unspecified Qualified Code(s): I25.10 - Atherosclerotic heart disease of [place] coronary artery without angina pectoris (2) CHF (congestive heart failure): Continues to be slightly volume overloaded will give another Lasix IV 40 mg now. Will replace potassium Status: Acute Qualifiers: Heart failure type: systolic Heart failure chronicity: acute on chronic Qualified Code(s): I50.23 - Acute on chronic systolic (congestive) heart failure (3) HTN (hypertension): Well-controlled continue medicine. Status: Chronic Qualifiers: Hypertension type: essential hypertension Qualified Code(s): I10 - Essential (primary) hypertension Attestations Medical Necessity Statement*: Require continuation hospitalization however will transfer patient out of unit to CSU Coding Level of Care Code Established Pt Acute Pamphlet Distributor for Chg Fwd Patient Type Established History Detailed Exam Detailed Medical Decision Making Moderate Complexity Diagnoses CAD (coronary artery disease) I25.10 Coronary Disease-Associated Artery/Lesion type: [place] artery [place] vs. transplanted heart: [place] heart Associated angina: angina presence unspecified CHF (congestive heart failure) I50.23 Heart failure type: systolic Heart failure chronicity: acute on chronic HTN (hypertension) I10 Hypertension type: essential hypertension
[2021-01-07] MEDS: carvedilol 12.5 mg Tablet PO (20:41)
[2021-01-07] MEDS: atorvastatin 40 mg Tablet 80 MG PO (20:41)
[2021-01-08] VITALS (10 sets, daily range): BP systolic 91–118; BP diastolic 53–69; PULSE 62–76; RESP 18–22; TEMP 36.6–36.9; O2SAT 90–98
--- NOTE | 2021-01-08 06:53 | PC.NURSE ---
Report given to GAGAN Leon in CSU. Patient to be transferred to Room 102
[2021-01-08] MEDS: allopurinol 300 mg Tablet PO (08:47)
[2021-01-08] MEDS: magnesium oxide 400 mg tablet PO (08:47)
[2021-01-08] MEDS: omega-3 fatty acids 1,000 mg Capsule 1000 MG PO (08:47)
[2021-01-08] MEDS: carvedilol 25 mg Tablet PO (08:47)
[2021-01-08] MEDS: ticagrelor 90 mg Tablet PO (08:48)
[2021-01-08] MEDS: potassium chloride ER 20 mEq Tablet PO (08:48)
[2021-01-08] MEDS: aspirin 81 mg Chew Tablet PO (08:48)
[2021-01-08] MEDS: FUROsemide 40 mg Tablet PO (08:48)
[2021-01-08] MEDS: amiodarone 200 mg Tablet PO (08:48)
[2021-01-08] MEDS: lisinopril 20 mg Tablet 40 MG PO (08:48)
[2021-01-08] MEDS: multivitamin therapeutic Tablet 1 TAB PO (08:48)
[2021-01-08] MEDS: isosorbide mononitrate ER 30 mg Tablet PO (08:49)
--- NOTE | 2021-01-08 09:13 | PC.CHAP ---
Pastoral Care Encounter/Spiritual Assessment Type of Contact [] Declined travel accommodations rater visit [] Patient/Family/Request visit [] Outpatient visit [] Follow-up visit [] Physician referral [] Code/Alert [x] Routine visit [] Staff referral [] Actively dying [] Patient sleeping [] Family support [] [] Out of room [] Palliative care [] [] Receiving care in room [] Pre-surgical visit [] Trauma [] Long length of stay [] ICU visit [x] Other: ICU transfer Relational/Emotional Strength [] Patient feels connected with others/family/visitors/staff [] Distress [] Loneliness/isolation [] Abandonment Spirituality of Patient [] Person of Ricarda [] Attends Baptism of their Ricarda [] Believes in Prayer [] Reads Bible or Anabaptist materials [] There are Spiritual issues to be addressed Inspector Wire Products Interventions [x] Prayer [x] Active listening [x] Non-anxious presence [x] Spiritual/emotional support [] Crisis/trauma care [] Spiritual counseling [] Bereavement support [] Provided bereavement packet [] Provided Bible/devotional materials [] Provided toy/stuffed animal, coloring book to patient or family member [] Provided Communion [] Anointing/[place] [] Salvation [x] Completed spiritual assessment [] Other: Impact on Illness or Injury [] Angry [] Fearful [] Anxious [] Often cries [] Exhaustion [] Unable to work [] Unable to attend confucianist [] Unable to walk/stand [] Unable to read [] Unable to drive [] Unable to eat/drink [] Unable to sleep [] Unable to be with family [] Patient intubated [] Other: Summary transferred from ICU-- appreciated this doctor and staff.. preparing to go home Time spent with patient 10 min
[2021-01-08 11:56] LABS: Anion Gap 13.1 (5-19); Blood Urea Nitrogen 17 mg/dL (8-23); Calcium 8.7 mg/dL (8.5-10.5); Carbon Dioxide 24 mmol/L (22-29); Chloride 104 mmol/L (98-107); Glucose 159 mg/dL (65-115); Osmolality Calculated 289 mOsm/kg (285-295); Potassium 4.1 mmol/L (3.5-5.1); Sodium 137 mmol/L (136-145)
[2021-01-08 11:57] LABS: Troponin T (5th) Once 79 ng/L (0-15)
--- NOTE | 2021-01-08 13:25 | P.DS_ITS ---
Discharge Providers Date of Admission: 01/06/21 11:03 Date of Discharge: January 08, 2021 Attending Provider at Admission: Kin Plascencia MD Attending Provider at Discharge: Kin Plascencia MD Primary Care Provider: Kyle Bill DO Diagnoses at Discharge Discharge Diagnosis (1) CAD (coronary artery disease): Status: Chronic Qualifiers: Associated angina: angina presence unspecified Coronary Disease- Associated Artery/Lesion type: [place] artery [place] vs. transplanted heart: [place] heart Qualified Code(s): I25.10 - Atherosclerotic heart disease of [place] coronary artery without angina pectoris (2) CHF (congestive heart failure): Status: Acute Qualifiers: Heart failure chronicity: acute on chronic Heart failure type: systolic Qualified Code(s): I50.23 - Acute on chronic systolic (congestive) heart failure (3) HTN (hypertension): Status: Chronic Qualifiers: Hypertension type: essential hypertension Qualified Code(s): I10 - Essential (primary) hypertension Reason for Visit Reason for Visit: [facility] Hospital Course Hospital Course 65-year-old male past medical history significant for hypertension hyperlipidemia prior stents presented with worsening of angina despite optimization medicine LV dysfunction underwent left heart cath. He was noted to have moderate to severe mid LAD in-stent restenosis. FFR was performed which showed significant drop in FFR less than 0.77. Balloon angioplasty was performed excellent angiographic result was achieved. Patient was transferred back to the room within minutes patient started developing chest pain and ST elevation on telemetry. Immediate twelve-lead EKG was suggestive of anterolateral ST elevation. Patient was immediately brought to the Director Of Patient Safety and through groin approach angiogram was performed it was noted proximal LAD was subtotally occluded with SRUTHI I flow due to possible guide induced dissection it was treated with balloon angioplasty followed by proximal overlapping stent. Excellent angiographic result was achieved patient was intubated due to instability and to protect the airway. Over next 24 hours patient was extubated as he went into heart failure which was treated with IV diuresis. His medicine were optimized troponin bumped to 130 later it came down to 70. Creatinine and hemoglobin remains normal. Today he is walking around without any difficulty. His medicine were optimized he is being discharged home on home meds including ticagrelor. Physical Exam Narrative: EXAM NARRATIVE: GENERAL: Patient is alert, awake and oriented x3. NECK: No jugular vein distension. HEENT: No cyanosis. No icterus. No pallor. HEART: Regular S1 and S2. No murmur, rub or gallop. LUNGS: Clear to auscultate bilaterally. ABDOMEN: Soft, nontender and nondistended. Positive bowel sounds. No guarding, rebound or tenderness. CENTRAL NERVOUS SYSTEM: Grossly nonfocal. EXTREMITIES: Lower extremities without edema bilaterally. Const: COMMON NORMALS: alert Resp: COMMON NORMALS: clear to auscultation bilaterally AUSCULTATION: clear to auscultation bilaterally Neuro: SENSORIUM/ORIENTATION: Yes alert Urinary Catheter Management^: Raymond: Cath Placed During This Visit: yes, but has since been removed by the nurse Reason for Continuing Indwelling Catheter: Required Immobilization for Trauma or Surgery or Anesthesia Urinary Catheter Date of Insertion: 01/06/21 Urinary Catheter Time of Insertion: 14:00 Date Urinary Catheter Removed: 01/07/21 Time Urinary Catheter Discontinued: 15:00 Discharge Data Data Completed and Pending: Completed Studies During Hospitalization Category Date Time Status XR chest 1V hernan ble [id number] Routine Exams 01/06/21 11:50 Completed Pending at discharge Category Date Time Status COST SPECIALIST request for service Routin e Exams 01/06/21 Taken COST SPECIALIST request for service Routin e Exams 01/06/21 07:21 Taken Labs from last 24 hours 01/08/21 01/08/21 10:39 10:39 Sodium 137 Potassium 4.1 Chloride 104 Carbon Dioxide 24 Anion Gap 13.1 BUN 17 Creatinine 0.8 GFR Calculation 97.0 Glucose 159 H Calculated Osmolal ity 289 Calcium 8.7 Troponin T Gen 5 n g/L 79 H Vitals: Last Vital Signs Temp 98.4 F 01/08/21 12:00 Pulse 62 01/08/21 12:00 Resp 22 H 01/08/21 12:00 BP 91/53 01/08/21 12:00 Pulse Ox 90 01/08/21 12:00 Discharge Plan Discharge Patient Disposition: Home Condition: Stable Prescriptions: Continued furosemide 40 mg tablet 40 mg PO DAILY Qty: 90 RF: 3 potassium chloride 20 mEq tablet extended release 20 meq PO DAILY Qty: 90 RF: 3 Brilinta 90 mg tablet 90 mg PO BID RF: 0 amiodarone 200 mg tablet 200 mg PO DAILY RF: 0 multivitamin [Daily Multi-Vitamin] Tablet 1 tab PO DAILY RF: 0 aspirin 81 mg tablet,chewable 81 mg PO DAILY RF: 0 atorvastatin 80 mg tablet 80 mg PO DAILY RF: 0 carvedilol [Coreg] 25 mg tablet See Rx Instructions PO BID RF: 0 lisinopril 40 mg tablet 40 mg PO DAILY RF: 0 isosorbide mononitrate 30 mg tablet extended release 24 hr 30 mg PO DAILY RF: 0 omega-3 fatty acids [Fish Oil Concentrate] 1,000 mg capsule 1,000 mg PO DAILY RF: 0 nitroglycerin 0.4 mg tablet, sublingual 0.4 mg SUBLINGUAL Q5M PRN (Reason: Chest Pain) RF: 0 allopurinol 300 mg tablet 300 mg PO DAILY RF: 0 magnesium oxide,aspartate,citr 400 mg magnesium capsule 400 mg PO DAILY RF: 0 Discharge Orders: Discharge Order (Routine); Ordered 01/08/21 Ordered By: Kin Plascencia Referrals: Kin Plascencia MD [Physician] - 1 month (Please keep your appointment with Dr. Plascencia on , March 06 at 2:00P.M. If you have any questions or need to reschedule. Please call ) Ledy Martinez FNP [Nurse Practitioner] - 7-10 days (Please follow-up with Ledy Martinez on January 15 at 1:30P.M. If you have any questions or need to reschedule. Please call ) Discharge Diet: Cardiac, Low Salt and Low Cholesterol Discharge Activity: Increase activity as tolerated Patient Instructions: Left Heart Catheterization (DC), CHF Stoplight, Post Angiogram Home Care Instructions Activity Restrictions/Additional Instructions: Follow-up with Ledy Martinez in 7 days, Dr. Plascencia in 6 to 8 weeks. Keep log of blood pressure pulse daily weight. If you gain more than 3 pound in 2 conjunctive days take extra Lasix along with extra potassium. Discharge Attestations Time Spent in Discharge Care*: less than 30 min Specific Discharge Activities: educating patient and educating and/or supporting family/caregiver Quality Metrics Clinical Quality Measures During this hospital stay, did patient experience: AMI Clinical Trial Participant: No Contraindication to aspirin (AMI): Aspirin given Contraindication to statin: Statin prescribed Contraindication to PCI: PCI performed Coding Level of Care Code Established Pt Acute Hr Administrator for Chg Fwd Patient Type Established History Detailed Exam Detailed Medical Decision Making Moderate Complexity Diagnoses CAD (coronary artery disease) I25.10 Associated angina: angina presence unspecified Coronary Disease-Associated Artery/Lesion type: [place] artery [place] vs. transplanted heart: [place] heart CHF (congestive heart failure) I50.23 Heart failure chronicity: acute on chronic Heart failure type: systolic HTN (hypertension) I10 Hypertension type: essential hypertension
--- NOTE | 2021-01-08 15:33 | PC.NURSE ---
Discharge instructions given per the physician's orders. Patient verbalized understanding of teaching and did not have any further questions. IV has been removed. Patient dressed self. No further needs identified at this time.
== END 2021-01-08 15:48 | disposition home or self-care (01) | DRG 246 ==
LOC: CSU 14:28 → ICU 14:28 → CCL 14:28 → CSU 01-08 07:43
PROVIDERS: Admitting Provider Internal Medicine Cardiovascular Disease; PCP Emergency Medicine Emergency Medical Services; Visit Provider Internal Medicine Cardiovascular Disease
PROC: 027035Z Dilation of Coronary Artery, One Artery with Two Drug-eluting Intraluminal Devices, Percutaneous Approach (ICD-10-PCS; principal; 2021-01-06 08:30)
PROC: 027035Z Dilation of Coronary Artery, One Artery with Two Drug-eluting Intraluminal Devices, Percutaneous Approach (ICD-10-PCS; 2021-01-06 08:30)
DX: I21.09 ST elevation (STEMI) myocardial infarction involving other coronary artery of anterior wall (principal); I50.23 Acute on chronic systolic (congestive) heart failure; T82.855A Stenosis of coronary artery stent, initial encounter; Y71.1 Therapeutic (nonsurgical) and rehabilitative cardiovascular devices associated with adverse incidents; I25.10 Atherosclerotic heart disease of native coronary artery without angina pectoris; Z95.5 Presence of coronary angioplasty implant and graft; E78.5 Hyperlipidemia, unspecified; I25.2 Old myocardial infarction; F41.9 Anxiety disorder, unspecified; N52.9 Male erectile dysfunction, unspecified; Z95.810 Presence of automatic (implantable) cardiac defibrillator; Z87.891 Personal history of nicotine dependence; Z79.82 Long term (current) use of aspirin
CPT/HCPCS: 36415; 36416; 71045; 80048; 80051; 82330; 82805; 82962; 84484; 85025; 85347; 85730; 92920; 93005; 93454; 93571; 94002; 94799; C1725; C1760; C1769; C1874; C1887; C1894; C9600; J0153; J1644; J1940; J2250; J2270; J2405; J2704; J3010; J3246; J3490; Q0163; Q9967

== ENCOUNTER → 2021-01-17 09:02 | Outpatient (BNVA) | payer OTHER, SELFPAY | PROVIDERS: PCP Emergency Medicine Emergency Medical Services; Visit Provider Internal Medicine Cardiovascular Disease | DX: I25.10 Atherosclerotic heart disease of native coronary artery without angina pectoris (principal); I10 Essential (primary) hypertension | CPT/HCPCS: 80048 ==

== ENCOUNTER 2021-01-23 20:00 | Outpatient (CLI) | payer OTHER, SELFPAY | END 2021-01-23 20:01 | disposition home or self-care (01) | LOC: SLEEP 01-24 10:18 | PROVIDERS: PCP Emergency Medicine Emergency Medical Services; Visit Provider Emergency Medicine Emergency Medical Services | DX: G47.10 Hypersomnia, unspecified (principal); R53.83 Other fatigue; R06.83 Snoring; G47.33 Obstructive sleep apnea (adult) (pediatric) | CPT/HCPCS: 95810 ==

== ENCOUNTER → 2022-01-07 09:10 | Outpatient (BNVA) | payer OTHER, SELFPAY | PROVIDERS: PCP Emergency Medicine Emergency Medical Services; Visit Provider Internal Medicine Cardiovascular Disease | DX: I11.0 Hypertensive heart disease with heart failure (principal); I50.23 Acute on chronic systolic (congestive) heart failure; I25.10 Atherosclerotic heart disease of native coronary artery without angina pectoris; E78.2 Mixed hyperlipidemia; Z87.891 Personal history of nicotine dependence | CPT/HCPCS: 99214 ==